=== PATIENT | female | born 1985 | race Caucasian/White ===

== ENCOUNTER → 2017-02-13 | Outpatient (CLI) | payer OTHER ==
--- NOTE | 2017-02-13 15:45 | Diagnostic Imaging Report ---
EXAMINATION: Right breast ultrasound. INDICATION: Palpable mass in the right breast. FINDINGS: There is a 3.2 x 1.5 x 2.2 cm mass centered at the 10 o'clock zone 7 cm from the nipple. It has lobulated margins with a few areas in the margin demonstrating an angular appearance. It is slightly heterogenous with prominent internal vascularity. There is no shadowing. Mild increased through-transmission is seen. The lesion is wider than tall. The four quadrants and retroareolar region otherwise in the breast demonstrate no other abnormality. No axillary lymphadenopathy is noted. 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 An ultrasound-guided biopsy is recommended. The findings and recommendations were discussed with the patient at the time of dictation. ACR BI-RADS Category 4A: Low suspicion of malignancy Imaging Follow Up Interval: Now. Result letter will be mailed to the patient. Note: At least 10% of breast cancer is not imaged by mammography. Dictated by: Dictated on workstation # [id number]
== END ==
LOC: RAD 09:08
PROVIDERS: ATTEND Family Medicine
DX: N63.10 Unspecified lump in the right breast, unspecified quadrant (principal)
CPT/HCPCS: 76641

== ENCOUNTER → 2017-02-14 | Outpatient (CLI) | payer OTHER ==
[~2017-02-14] VITALS: Ht 170.2 cm; Wt 77.1 kg
[~2017-02-14] MED LIST: LIDOCAINE 1% INJ 20 ML (XYLOCAINE) VIAL INJ ONE
[2017-02-14 09:30] VITALS: BP 130/81
[2017-02-14 09:53] VITALS: BP 124/80
--- NOTE | 2017-02-14 17:14 | Diagnostic Imaging Report ---
EXAMINATION: Ultrasound-guided biopsy of a breast mass. A metallic clip placed to sera biopsy site. INDICATION: Right breast mass. CONSENT: Informed consent was obtained from the patient. The risks, benefits, potential complications and alternatives were reviewed and all questions answered to the patient's satisfaction. FINDINGS: Ultrasound images demonstrate a 3 CM lobulated solid right breast mass at 7 cm from the nipple, at 10:00 zone. PROCEDURE: After sterile preparation and draping, 1% lidocaine was utilized for local anesthesia. A 13-gauge guide needle was introduced under live ultrasound guidance to the level of the lesion. Good needle position was documented with ultrasound images. 14-gauge biopsy needle was utilized and core biopsies were performed. Multiple samples were obtained and sent to pathology. A metallic clip was placed to sera the site of the biopsy. A subsequent mammogram is performed and confirms the proper positioning of the clip. The patient tolerated the procedure well with no immediate complications. IMPRESSION: Successful ultrasound-guided core biopsy of 10:00 right breast mass. Dictated by: Dictated on workstation # [id number]
== END ==
LOC: RAD 09:02
PROVIDERS: ATTEND Family Medicine
DX: N63.10 Unspecified lump in the right breast, unspecified quadrant (principal)
CPT/HCPCS: 19083

== ENCOUNTER 2020-01-13 09:19 | Emergency (ER) | payer OTHER ==
[~2020-01-13] VITALS: Ht 157.4 cm; Wt 72.7 kg
[2020-01-13 09:23] VITALS: BP 118/74
[2020-01-13] MEDS ORDERED: CEPH500T PO (09:33)
[2020-01-13] MEDS ORDERED: ONDA4TAB11 PO (09:33)
--- NOTE | 2020-01-13 09:34 | ED Integumentary General ---
General Chief Complaint: Skin/Wound Problems Stated Complaint: SPIDER BITE Source: patient Exam Limitations: no limitations History of Present Illness Date Seen by Provider: Jan 13, 2020 Time Seen by Provider: 09:18 Initial Comments 3 days ago on Saturday the patient had a welt show up on her left foot medial side with 2 little puncture grady. Is not gotten much bigger but it is painful and she is having some nausea. She did not see a spider bite her. She does not have any other medical problems or follow with a doctor for any reason. She's been using ice and Tylenol. Allergies and Home Medications Allergies Coded Allergies: No Known Drug Allergies (Unverified , 02/14/17) Patient Home Medication List Home Medication List Reviewed: Yes Review of Systems Review of Systems Constitutional: No chills, No diaphoresis EENTM: No ear discharge, No hearing loss Respiratory: No cough, No short of breath Cardiovascular: No chest pain, No palpitations Past Oeexsea-Fyekud-Pakzij Hx Patient Social History Alcohol Use: Denies Use Recreational Drug Use: No Smoking Status: Never a Smoker Recent Foreign Travel: No Contact w/Someone Who Travel: No Physical Exam Vital Signs Capillary Refill : General Appearance: WD/WN, no apparent distress HEENT: PERRL/EOMI, pharynx normal Cardiovascular: normal peripheral pulses, regular rate, rhythm Skin: other (to close together 2 mm papules with mild erythematous base. No fluctuance. Medial side of her left foot.) Progress/Results/Core Measures Progress Progress Note : Time: 09:31 Progress Note Perhaps this was a spider or insect bite however he does not appear to be a very serious envenomation. Because of her nausea we'll give her some Zofran. To prevent infection we'll put her on 5 days of antibiotics. Departure Impression Primary Impression: Accidental spider bite Disposition: HOME, SELF-CARE Condition: Stable Departure-Patient Inst. Decision time for Depature: 09:32 Referrals: NO,LOCAL PHYSICIAN (PCP/Family) Primary Care Physician Patient Instructions: Spider Bites Add. Discharge Instructions: Keep the wound clean with regular soap and water. You may use heating pads or warm moist heat. Keflex one capsule twice a day to prevent infection formation. Tylenol 1000 mg every 8 hours as necessary for pain. Ibuprofen 800 mg every 8 hours as necessary for pain. Ondansetron one tablet every 6 hours as necessary for nausea and/or vomiting. All discharge instructions reviewed with patient and/or family. Voiced understanding. Scripts Ondansetron (Ondansetron Odt) 4 Mg Tab.rapdis 4 MG PO Q6H PRN for NAUSEA/VOMITING, #8 TAB 0 Refills Prov: AMY PAIGE 01/13/20 Cephalexin (Cephalexin) 500 Mg Tablet 500 MG PO BID for 5 Days, #10 TAB 0 Refills Prov: AMY PAIGE 01/13/20 Work/School Note: Work Release Form Date Seen in the Emergency Department: Jan 13, 2020 Return to Work: Jan 13, 2020 Restrictions: No Restrictions AMY PAIGE Jan 13, 2020 09:33
== END 2020-01-13 09:38 | disposition home or self-care (01) ==
LOC: EDUNIT# 09:19 → ER 09:21
DX: T63.391A Toxic effect of venom of other spider, accidental (unintentional), initial encounter (principal)
CPT/HCPCS: 99282